=== PATIENT | male | born 1985 | race Two or more races ===

== ENCOUNTER 2017-09-11 20:31 | Emergency (ER) | payer MEDICAID ==
[~2017-09-11] VITALS: Ht 177.8 cm; Wt 86.2 kg
[2017-09-11 20:35] VITALS: BP 168/87
[2017-09-11 21:44] LABS: Urine Bacteria NONE SEEN /hpf (None Seen); Urine Blood Negative /uL (Negative); Urine Mucus FEW (None Seen); Urine Specific Gravity 1.025 (1.001-1.035); Urine WBC 167 /hpf (0 - 3)
[2017-09-11] MEDS ORDERED: cefTRIAXone SOD 500 MG VL IM ONE (21:45)
[2017-09-11] MEDS ORDERED: AZITHROMYCIN 250 MG TAB PO ONE (21:45)
== END 2017-09-11 22:07 | disposition home or self-care (01) ==
LOC: ER 20:31
DX: N34.2 Other urethritis (principal)
CPT/HCPCS: 81001; 87491; 87591; 99284; J0696